=== PATIENT | female | born 1975 | race African-American/Black ===

== ENCOUNTER 2024-04-08 18:40 | Emergency (ER) | payer BC, OTHER ==
[2024-04-08 18:56] VITALS: BP 139/87; PULSE 109; RESP 18; TEMP 99.7; BMI 24.3
[2024-04-08] MEDS ORDERED: KETOROLAC TROMETHAMINE 60 MG/2 ML VIAL ONE (19:36)
[2024-04-08] MEDS ORDERED: CYCLOBENZAPRINE HCL 5 MG TABLET ONE (19:37)
[2024-04-08] MEDS: KETOROLAC TROMETHAMINE 60 MG/2 ML VIAL IM ONE (19:41)
[2024-04-08] MEDS: CYCLOBENZAPRINE HCL 10 MG TABLET (FP) PO ONE (19:42)
== END 2024-04-08 20:22 | disposition home or self-care (01) ==
LOC: FER 18:40
PROC: 3E0133Z Introduction of Anti-inflammatory into Subcutaneous Tissue, Percutaneous Approach (ICD-10-PCS; principal; 2024-04-08)
DX: R07.89 Other chest pain (principal)
CPT/HCPCS: 99284-25